=== PATIENT | female | born 1955 | race Caucasian/White ===

== ENCOUNTER 2017-01-03 21:06 | Emergency (ER) | payer MEDICAID ==
[~2017-01-03] VITALS: Ht 157.5 cm; Wt 72.8 kg
[~2017-01-03 21:06] MED LIST: ALBU0.63 NEB; ALBU18HF INH; ASPI-650 PO; CARV6.252 PO; HYDR25TA6 PO; LISI-167 PO; METO50TA4 PO; METO50TA82 PO; NAPR220C2 PO; SIMV20TA3 PO
[2017-01-03 21:07] VITALS: BP 202/92
== END 2017-01-03 21:58 ==
LOC: ED 21:52
DX: N64.4 Mastodynia (principal); Z53.21 Procedure and treatment not carried out due to patient leaving prior to being seen by health care provider

== ENCOUNTER 2017-03-10 21:37 | Emergency (ER) | payer MEDICAID ==
[~2017-03-10] VITALS: Ht 157.5 cm; Wt 72.2 kg
[2017-03-10 22:54] VITALS: BP 157/80
== END 2017-03-10 23:46 | disposition home or self-care (01) ==
LOC: ED 22:17
DX: J98.01 Acute bronchospasm (principal); I10 Essential (primary) hypertension; H92.03 Otalgia, bilateral; J44.9 Chronic obstructive pulmonary disease, unspecified; I25.10 Atherosclerotic heart disease of native coronary artery without angina pectoris; I25.2 Old myocardial infarction; Z87.891 Personal history of nicotine dependence; Z95.818 Presence of other cardiac implants and grafts
CPT/HCPCS: 71020; 93005; 99284

== ENCOUNTER 2017-08-05 18:37 | Inpatient (IN) | payer MEDICAID ==
[~2017-08-05] VITALS: Ht 157.5 cm; Wt 73.8 kg
[2017-08-05] MEDS ORDERED: SODIUM CHLORIDE FLUSH 10ML SYR IVF ONE (19:00)
[2017-08-05] MEDS ORDERED: ASPIRIN 81 MG TABLET CHEW PO ONE (19:00)
[2017-08-05] MEDS ORDERED: ASPIRIN 81 MG TABLET CHEW ONE (19:05)
[2017-08-05] MEDS ORDERED: METO50TA82 PO (19:21)
[2017-08-05 19:40] LABS: HEMATOCRIT 44.1 % (34.6-47.8); HEMOGLOBIN 15.1 g/dL (11.7-16.4); WHITE BLOOD COUNT 8.3 x10^3/uL (3.4-10)
[2017-08-05] MEDS ORDERED: IBUPROFEN 200 MG TABLET ONE (19:42)
[2017-08-05] MEDS ORDERED: ACETAMINOPHEN 500 MG TABLET ONE (19:43)
[2017-08-05 19:45] LABS: BLOOD UREA NITROGEN 20 mg/dL (7-18)
[2017-08-05 19:50] LABS: IS PT STATUS REG ER OR PRE ER? YES
[2017-08-05] MEDS ORDERED: NITROGLYCERIN OINT 2%, 1GM TP ONE ×2 (20:00→20:33)
[2017-08-05] MEDS ORDERED: ENALAPRILAT 1.25 MG/ML, 2ML IV ONE (21:00)
[2017-08-05] MEDS ORDERED: ENALAPRILAT 1.25 MG/ML, 2ML ONE (21:06)
[2017-08-05] MEDS ORDERED: LORazepam 1MG TABLET ONE (21:09)
[2017-08-05] MEDS ORDERED: SODIUM CHLORIDE 0.9% 1,000 ML IV SCH (21:25)
[2017-08-05] MEDS ORDERED: ACETAMINOPHEN 325 MG TABLET PO PRN (21:30)
[2017-08-05] MEDS ORDERED: LABETALOL 5MG/ML, 20ML IVPush PRN (21:30)
[2017-08-05] MEDS ORDERED: morphine SULFATE 10 MG/ML, 1ML IVPush PRN (21:30)
[2017-08-05] MEDS ORDERED: hydrALAzine 20 MG/ML, 1ML IVPush PRN (21:30)
[2017-08-05] MEDS ORDERED: LORazepam 1MG TABLET PO PRN (21:30)
[2017-08-05] MEDS ORDERED: LORazepam 1MG TABLET PO ONE (21:30)
[2017-08-05 22:53] VITALS: BP 144/86
[2017-08-05 22:54] VITALS: BP 144/86
[2017-08-05 23:51] LABS: IS PT STATUS REG ER OR PRE ER? NO
[2017-08-06 03:27] VITALS: BP 102/62
[2017-08-06 05:12] VITALS: BP 127/81
[2017-08-06] MEDS ORDERED: ASPIRIN 325 MG TABLET EC PO SCH (06:00)
[2017-08-06 06:38] LABS: IS PT STATUS REG ER OR PRE ER? NO
== END 2017-08-06 07:15 | disposition left against medical advice (07) | DRG 305 ==
LOC: ED 20:54 → EDIP 20:55 → SUATTDRO 21:24 → ED 21:58 → 5SO 23:00
PROVIDERS: ADMIT Hospitalist; ATTEND Hospitalist
DX: I16.0 Hypertensive urgency (principal); I25.10 Atherosclerotic heart disease of native coronary artery without angina pectoris; I10 Essential (primary) hypertension; I49.3 Ventricular premature depolarization; J44.9 Chronic obstructive pulmonary disease, unspecified; Z53.21 Procedure and treatment not carried out due to patient leaving prior to being seen by health care provider; Z79.82 Long term (current) use of aspirin; Z82.49 Family history of ischemic heart disease and other diseases of the circulatory system; Z83.3 Family history of diabetes mellitus; Z87.891 Personal history of nicotine dependence
CPT/HCPCS: 36415; 71020; 80048; 80061; 82040; 84484; 85025; 93005; J7030

== ENCOUNTER 2017-08-12 16:06 | Emergency (ER) | payer MEDICAID ==
[~2017-08-12] VITALS: Ht 152.4 cm; Wt 73.1 kg
[2017-08-12] MEDS ORDERED: ASPIRIN 81 MG TABLET CHEW PO ONE (17:00)
[2017-08-12] MEDS ORDERED: DIPH,PERTUSS(ACELL),TET VAC/PF 0.5 ML IM-VACC ONE ×2 (17:00→17:20)
[2017-08-12 17:17] LABS: HEMATOCRIT 43.5 % (34.6-47.8); HEMOGLOBIN 15.1 g/dL (11.7-16.4); WHITE BLOOD COUNT 7.7 x10^3/uL (3.4-10)
[2017-08-12] MEDS ORDERED: ASPIRIN 81 MG TABLET CHEW ONE (17:22)
[2017-08-12 17:29] LABS: BLOOD UREA NITROGEN 31 mg/dL (7-18)
[2017-08-12 17:33] LABS: IS PT STATUS REG ER OR PRE ER? YES
[2017-08-12] MEDS ORDERED: HYDROcodone/APAP 5/325 TABLET PO ONE (18:00)
[2017-08-12] MEDS ORDERED: HYDROcodone/APAP 5/325 TABLET ONE (18:19)
[2017-08-12 19:19] VITALS: BP 203/109
[2017-08-12] MEDS ORDERED: METOPROLOL TARTRATE 50 MG TABLET ONE (19:42)
[2017-08-12] MEDS ORDERED: METOPROLOL TARTRATE 50 MG TABLET PO ONE (20:00)
== END 2017-08-12 20:50 | disposition home or self-care (01) ==
LOC: ED 17:34
DX: I10 Essential (primary) hypertension (principal); J44.9 Chronic obstructive pulmonary disease, unspecified; I25.10 Atherosclerotic heart disease of native coronary artery without angina pectoris
CPT/HCPCS: 36415; 80048; 82040; 83880; 84484; 85025; 90471; 90715; 93005

== ENCOUNTER 2017-09-09 02:36 | Emergency (ER) | payer MEDICAID ==
[~2017-09-09] VITALS: Ht 157.5 cm; Wt 85.0 kg
[2017-09-09] MEDS ORDERED: ACETAMINOPHEN 325 MG TABLET PO ONE (03:00)
[2017-09-09] MEDS ORDERED: ACETAMINOPHEN 500 MG TABLET ONE (03:01)
[2017-09-09 03:16] VITALS: BP 154/88
== END 2017-09-09 03:18 | disposition home or self-care (01) ==
LOC: ED 02:40
DX: S46.812A Strain of other muscles, fascia and tendons at shoulder and upper arm level, left arm, initial encounter (principal); J44.9 Chronic obstructive pulmonary disease, unspecified; I10 Essential (primary) hypertension; E87.6 Hypokalemia; I25.2 Old myocardial infarction; X58.XXXA Exposure to other specified factors, initial encounter; Y93.89 Activity, other specified; Y92.89 Other specified places as the place of occurrence of the external cause; Y99.8 Other external cause status
CPT/HCPCS: 93005; 99283

== ENCOUNTER 2017-09-20 19:14 | Emergency (ER) | payer MEDICAID ==
[~2017-09-20] VITALS: Ht 162.6 cm; Wt 73.0 kg
[2017-09-20 19:29] VITALS: BP 138/86
== END 2017-09-20 19:33 | disposition left against medical advice (07) ==
LOC: ED 19:27
DX: R07.9 Chest pain, unspecified (principal); Z53.21 Procedure and treatment not carried out due to patient leaving prior to being seen by health care provider

== ENCOUNTER 2017-09-24 23:31 | Emergency (ER) | payer MEDICAID ==
[~2017-09-24] VITALS: Ht 160 cm; Wt 73.0 kg
[2017-09-24 23:35] VITALS: BP 166/87
[2017-09-24] MEDS ORDERED: NAPR220C2 PO (23:40)
[2017-09-24] MEDS ORDERED: OMEG-76 PO (23:41)
[2017-09-24] MEDS ORDERED: ASPI-650 PO (23:41)
[2017-09-24] MEDS ORDERED: MULT-516 PO (23:42)
[2017-09-24] MEDS ORDERED: DIPHENHYDRAMINE 50 MG/ML, 1ML ONE (23:55)
[2017-09-25] MEDS ORDERED: DIPHENHYDRAMINE 50 MG/ML, 1ML IM ONE
== END 2017-09-25 00:35 | disposition home or self-care (01) ==
LOC: ED 23:59
DX: L29.9 Pruritus, unspecified (principal); I10 Essential (primary) hypertension; J44.9 Chronic obstructive pulmonary disease, unspecified; I25.10 Atherosclerotic heart disease of native coronary artery without angina pectoris; E87.6 Hypokalemia
CPT/HCPCS: 96372; 99283; J1200

== ENCOUNTER 2017-09-27 09:23 | Emergency (ER) | payer MEDICAID ==
[~2017-09-27] VITALS: Ht 160 cm; Wt 68.2 kg
[~2017-09-27 09:23] MED LIST changes: +MULT-516 PO; +OMEG-76 PO
[2017-09-27 09:26] VITALS: BP 159/87
== END 2017-09-27 10:12 | disposition left against medical advice (07) ==
LOC: ED 10:00
DX: J11.1 Influenza due to unidentified influenza virus with other respiratory manifestations (principal); Z53.21 Procedure and treatment not carried out due to patient leaving prior to being seen by health care provider

== ENCOUNTER 2017-10-07 04:34 | Emergency (ER) | payer MEDICAID ==
[~2017-10-07] VITALS: Ht 160 cm; Wt 70.7 kg
[2017-10-07 04:36] VITALS: BP 172/132
== END 2017-10-07 05:20 | disposition left against medical advice (07) ==
LOC: ED 05:09
DX: Z53.21 Procedure and treatment not carried out due to patient leaving prior to being seen by health care provider (principal)

== ENCOUNTER 2017-10-07 06:25 | Emergency (ER) | payer MEDICAID ==
[~2017-10-07] VITALS: Ht 160 cm; Wt 70.9 kg
[2017-10-07 06:27] VITALS: BP 166/95
[2017-10-07 07:02] LABS: HEMATOCRIT 41.2 % (34.6-47.8); HEMOGLOBIN 13.9 g/dL (11.7-16.4); WHITE BLOOD COUNT 10.8 x10^3/uL (3.4-10)
[2017-10-07 07:12] LABS: BLOOD UREA NITROGEN 23 mg/dL (7-18)
== END 2017-10-07 08:18 | disposition home or self-care (01) ==
LOC: ED 07:00
DX: S93.492A Sprain of other ligament of left ankle, initial encounter (principal); I10 Essential (primary) hypertension; J44.9 Chronic obstructive pulmonary disease, unspecified; F17.210 Nicotine dependence, cigarettes, uncomplicated; I25.10 Atherosclerotic heart disease of native coronary artery without angina pectoris; I25.2 Old myocardial infarction; X58.XXXA Exposure to other specified factors, initial encounter; Y93.89 Activity, other specified; Y92.89 Other specified places as the place of occurrence of the external cause; Y99.8 Other external cause status
CPT/HCPCS: 36415; 80048; 82040; 85025; 99285

== ENCOUNTER 2017-10-12 22:02 | Emergency (ER) | payer MEDICAID ==
[~2017-10-12] VITALS: Ht 160 cm; Wt 72.2 kg
[2017-10-12] MEDS ORDERED: FAMOTIDINE 20 MG TABLET ONE (23:40)
[2017-10-12] MEDS ORDERED: DIPHENHYDRAMINE 50 MG CAPSULE ONE (23:40)
[2017-10-13] MEDS ORDERED: DIPHENHYDRAMINE 25 MG CAPSULE PO ONE
[2017-10-13] MEDS ORDERED: FAMOTIDINE 20 MG/2 ML IVPush ONE
[2017-10-13 00:06] VITALS: BP 149/86
== END 2017-10-13 00:08 | disposition home or self-care (01) ==
LOC: ED 23:58
DX: L50.0 Allergic urticaria (principal); I10 Essential (primary) hypertension; J44.9 Chronic obstructive pulmonary disease, unspecified; I25.110 Atherosclerotic heart disease of native coronary artery with unstable angina pectoris
CPT/HCPCS: 99284; J7512; Q0163; Q0177

== ENCOUNTER 2017-10-17 16:21 | Emergency (ER) | payer MEDICAID | END 2017-10-17 21:27 | disposition left against medical advice (07) | LOC: ED 21:13 | DX: Z53.21 Procedure and treatment not carried out due to patient leaving prior to being seen by health care provider (principal) ==

== ENCOUNTER 2018-05-08 15:59 | Emergency (ER) | payer MEDICAID ==
[~2018-05-08] VITALS: Ht 160 cm; Wt 73.0 kg
[2018-05-08 18:14] LABS: BASOPHILS # (AUTO) 0.03 x10^3/uL (0-0.1); BASOPHILS % (AUTO) 0 % (0-1); EOSINOPHILS # (AUTO) 0.11 x10^3/uL (0-0.4); EOSINOPHILS % (AUTO) 1 % (1-7); LYMPHOCYTES # (AUTO) 2.16 x10^3/uL (1-3.4); LYMPHOCYTES % (AUTO) 25 % (22-44); MD NO; MEAN CORPUSCULAR HEMOGLOBIN 30.2 pg (27.0-34.8); MEAN CORPUSCULAR HGB CONC 34.1 g/dL (32.4-35.8); MEAN CORPUSCULAR VOLUME 88.7 fL (80-100); MEAN PLATELET VOLUME 8.9 fL (7.4-10.4); MONOCYTES # (AUTO) 0.69 x10^3/uL (0.2-0.8); MONOCYTES % (AUTO) 8 % (2-9); NEUTROPHILS # (AUTO) 5.76 x10^3/uL (1.8-6.8); NEUTROPHILS % (AUTO) 66 % (42-75); PLATELET COUNT 236 x10^3/uL (130-400); RED BLOOD COUNT 4.88 x10^6/uL (3.82-5.3); RED CELL DISTRIBUTION WIDTH 13.8 % (9.6-15.2)
[2018-05-08 18:24] LABS: ALBUMIN 4.1 g/dL (3.4-5.0); ANION GAP 8 mmol/L (5-15); CALCIUM 9.4 mg/dL (8.5-10.1); CHLORIDE 106 mmol/L (98-107); CREATININE 1.02 mg/dL (0.55-1.02)
[2018-05-08 18:28] LABS: TROPONIN I < 0.015 ng/mL (0.000-0.045)
[2018-05-08 18:52] VITALS: BP 158/79
== END 2018-05-08 18:55 | disposition home or self-care (01) ==
LOC: ED 18:49
DX: L30.9 Dermatitis, unspecified (principal)
CPT/HCPCS: 36415; 71045; 80048; 82040; 83880; 84484; 85025; 93005; 99285

== ENCOUNTER 2018-05-30 23:24 | Emergency (ER) | payer SELFPAY ==
[~2018-05-30] VITALS: Ht 160 cm; Wt 73.0 kg
[2018-05-31] MEDS ORDERED: LORazepam 1MG TABLET ONE (00:21)
[2018-05-31] MEDS ORDERED: LORazepam 1MG TABLET PO ONE (00:30)
[2018-05-31 00:33] LABS: BASOPHILS # (AUTO) 0.04 x10^3/uL (0-0.1); BASOPHILS % (AUTO) 1 % (0-1); EOSINOPHILS # (AUTO) 0.13 x10^3/uL (0-0.4); EOSINOPHILS % (AUTO) 2 % (1-7); LYMPHOCYTES # (AUTO) 1.68 x10^3/uL (1-3.4); LYMPHOCYTES % (AUTO) 20 % (22-44); MD NO; MEAN CORPUSCULAR HEMOGLOBIN 30.2 pg (27.0-34.8); MEAN CORPUSCULAR HGB CONC 34.2 g/dL (32.4-35.8); MEAN CORPUSCULAR VOLUME 88.2 fL (80-100); MEAN PLATELET VOLUME 8.6 fL (7.4-10.4); MONOCYTES # (AUTO) 0.52 x10^3/uL (0.2-0.8); MONOCYTES % (AUTO) 6 % (2-9); NEUTROPHILS % (AUTO) 72 % (42-75); PLATELET COUNT 245 x10^3/uL (130-400); RED BLOOD COUNT 4.79 x10^6/uL (3.82-5.3); RED CELL DISTRIBUTION WIDTH 13.7 % (9.6-15.2)
[2018-05-31 00:43] LABS: ALANINE AMINOTRANSFERASE 32 U/L (12-78); ALBUMIN 3.7 g/dL (3.4-5.0); ANION GAP 8 mmol/L (5-15); CALCIUM 9.2 mg/dL (8.5-10.1); CHLORIDE 109 mmol/L (98-107); CREATININE 0.99 mg/dL (0.55-1.02)
[2018-05-31 00:47] LABS: ALKALINE PHOSPHATASE 78 U/L (45-117); BILIRUBIN,TOTAL 0.5 mg/dL (0.2-1.0); TOTAL PROTEIN 7.5 g/dL (6.4-8.2); TROPONIN I < 0.015 ng/mL (0.000-0.045)
[2018-05-31 02:04] VITALS: BP 152/73
== END 2018-05-31 02:18 | disposition home or self-care (01) ==
LOC: ED 23:59
DX: R00.2 Palpitations (principal); F41.1 Generalized anxiety disorder; I25.2 Old myocardial infarction; J44.9 Chronic obstructive pulmonary disease, unspecified; I25.10 Atherosclerotic heart disease of native coronary artery without angina pectoris; I10 Essential (primary) hypertension; Z79.899 Other long term (current) drug therapy
CPT/HCPCS: 36415; 71046; 80053; 80307; 84484; 85025; 93005; 99285

== ENCOUNTER 2018-06-06 00:05 | Emergency (ER) | payer SELFPAY ==
[~2018-06-06] VITALS: Ht 154.9 cm; Wt 66.5 kg
[2018-06-06] MEDS ORDERED: ACETAMINOPHEN 325 MG TABLET ONE (00:51)
[2018-06-06] MEDS ORDERED: ACETAMINOPHEN 325 MG TABLET PO ONE (01:00)
[2018-06-06 01:23] VITALS: BP 250/88
== END 2018-06-06 05:00 | disposition home or self-care (01) ==
LOC: ED 00:16
DX: I10 Essential (primary) hypertension (principal); I25.2 Old myocardial infarction; J44.9 Chronic obstructive pulmonary disease, unspecified; I25.10 Atherosclerotic heart disease of native coronary artery without angina pectoris
CPT/HCPCS: 99283

== ENCOUNTER 2018-07-04 03:29 | Emergency (ER) | payer SELFPAY ==
[~2018-07-04] VITALS: Ht 167.6 cm; Wt 75.0 kg
[2018-07-04 03:29] VITALS: BP 167/97
[2018-07-04] MEDS ORDERED: FAMOTIDINE 20 MG TABLET PO ONE (04:00)
[2018-07-04] MEDS ORDERED: FAMOTIDINE 20 MG TABLET ONE (04:16)
== END 2018-07-04 04:28 | disposition home or self-care (01) ==
LOC: ED 04:20
DX: T78.1XXA Other adverse food reactions, not elsewhere classified, initial encounter (principal); F23 Brief psychotic disorder; F22 Delusional disorders; I25.2 Old myocardial infarction; J44.9 Chronic obstructive pulmonary disease, unspecified; I25.10 Atherosclerotic heart disease of native coronary artery without angina pectoris; I10 Essential (primary) hypertension; Z87.891 Personal history of nicotine dependence; X58.XXXA Exposure to other specified factors, initial encounter
CPT/HCPCS: 99283; Q0177

== ENCOUNTER 2018-07-15 23:06 | Emergency (ER) | payer OTHER ==
[~2018-07-15] VITALS: Ht 157.5 cm; Wt 68.2 kg
[2018-07-15] MEDS ORDERED: KETOROLAC 30 MG/1 ML ONE (23:36)
[2018-07-16] MEDS ORDERED: KETOROLAC 30 MG/1 ML IM ONE
[2018-07-16 00:01] LABS: BASOPHILS # (AUTO) 0.03 x10^3/uL (0-0.1); BASOPHILS % (AUTO) 0 % (0-1); EOSINOPHILS # (AUTO) 0.25 x10^3/uL (0-0.4); EOSINOPHILS % (AUTO) 3 % (1-7); LYMPHOCYTES # (AUTO) 1.81 x10^3/uL (1-3.4); LYMPHOCYTES % (AUTO) 23 % (22-44); MD NO; MEAN CORPUSCULAR HEMOGLOBIN 31.1 pg (27.0-34.8); MEAN CORPUSCULAR HGB CONC 34.5 g/dL (32.4-35.8); MEAN CORPUSCULAR VOLUME 90.2 fL (80-100); MEAN PLATELET VOLUME 8.7 fL (7.4-10.4); MONOCYTES # (AUTO) 0.54 x10^3/uL (0.2-0.8); MONOCYTES % (AUTO) 7 % (2-9); NEUTROPHILS # (AUTO) 5.17 x10^3/uL (1.8-6.8); NEUTROPHILS % (AUTO) 66 % (42-75); PLATELET COUNT 226 x10^3/uL (130-400); RED BLOOD COUNT 4.38 x10^6/uL (3.82-5.3); RED CELL DISTRIBUTION WIDTH 14.5 % (9.6-15.2)
[2018-07-16 00:12] LABS: ALBUMIN 3.4 g/dL (3.4-5.0); ANION GAP 9 mmol/L (5-15); CALCIUM 8.6 mg/dL (8.5-10.1); CHLORIDE 108 mmol/L (98-107); CREATININE 0.76 mg/dL (0.55-1.02)
[2018-07-16 00:16] LABS: TROPONIN I < 0.015 ng/mL (0.000-0.045)
[2018-07-16 01:30] VITALS: BP 155/71
== END 2018-07-16 02:07 | disposition home or self-care (01) ==
LOC: ED 23:49
DX: J20.9 Acute bronchitis, unspecified (principal); R07.2 Precordial pain; I25.2 Old myocardial infarction; I10 Essential (primary) hypertension; Z95.0 Presence of cardiac pacemaker
CPT/HCPCS: 36415; 71045; 80048; 82040; 84484; 85025; 93005; 96372; 99285; J1885

== ENCOUNTER 2018-07-21 00:49 | Emergency (ER) | payer SELFPAY ==
[~2018-07-21] VITALS: Ht 157.5 cm; Wt 70.4 kg
[2018-07-21 00:52] VITALS: BP 150/81
[2018-07-21] MEDS ORDERED: ALBUTEROL/IPRATROPIUM 2.5MG/0.5MG, 3 ML ONE (01:24)
[2018-07-21] MEDS ORDERED: ALBUTEROL/IPRATROPIUM 2.5MG/0.5MG, 3 ML NPPB PRN (01:30)
[2018-07-21] MEDS ORDERED: ALBUTEROL/IPRATROPIUM 2.5MG/0.5MG, 3 ML NPPB ONE (01:30)
== END 2018-07-21 02:44 | disposition home or self-care (01) ==
LOC: ED 01:21
DX: J44.1 Chronic obstructive pulmonary disease with (acute) exacerbation (principal); I25.2 Old myocardial infarction; F41.1 Generalized anxiety disorder; I10 Essential (primary) hypertension; Z72.9 Problem related to lifestyle, unspecified; F17.200 Nicotine dependence, unspecified, uncomplicated
CPT/HCPCS: 71046; 94640; 99284; J7512; J7620

== ENCOUNTER 2018-07-30 00:16 | Emergency (ER) | payer SELFPAY ==
[~2018-07-30] VITALS: Ht 157.5 cm; Wt 70.5 kg
[2018-07-30 00:19] VITALS: BP 164/92
[2018-07-30 00:58] LABS: ANION GAP 8 mmol/L (5-15); CALCIUM 8.7 mg/dL (8.5-10.1); CHLORIDE 110 mmol/L (98-107); CREATININE 0.86 mg/dL (0.55-1.02)
[2018-07-30 01:02] LABS: TROPONIN I < 0.015 ng/mL (0.000-0.045)
== END 2018-07-30 01:57 | disposition home or self-care (01) ==
LOC: ED 00:30
DX: R04.0 Epistaxis (principal); I10 Essential (primary) hypertension; F41.1 Generalized anxiety disorder; I25.2 Old myocardial infarction; J44.9 Chronic obstructive pulmonary disease, unspecified; I25.10 Atherosclerotic heart disease of native coronary artery without angina pectoris; Z98.61 Coronary angioplasty status
CPT/HCPCS: 36415; 80048; 84484; 93005; 99285

== ENCOUNTER 2018-08-05 02:02 | Emergency (ER) | payer OTHER ==
[~2018-08-05] VITALS: Ht 154.9 cm; Wt 70.8 kg
[2018-08-05 02:09] VITALS: BP 161/99
== END 2018-08-05 02:47 | disposition home or self-care (01) ==
LOC: ED 02:19
DX: R06.00 Dyspnea, unspecified (principal); J44.9 Chronic obstructive pulmonary disease, unspecified; I25.2 Old myocardial infarction; E11.65 Type 2 diabetes mellitus with hyperglycemia; I25.10 Atherosclerotic heart disease of native coronary artery without angina pectoris; I10 Essential (primary) hypertension
CPT/HCPCS: 93005; 99283

== ENCOUNTER 2018-08-17 07:36 | Emergency (ER) | payer SELFPAY ==
[~2018-08-17] VITALS: Ht 157.5 cm; Wt 70.6 kg
[2018-08-17 07:41] VITALS: BP 188/127
[2018-08-17] MEDS ORDERED: ALEVE (08:34)
== END 2018-08-17 08:51 | disposition home or self-care (01) ==
LOC: ED 08:30
DX: T36.4X5A Adverse effect of tetracyclines, initial encounter (principal); L55.0 Sunburn of first degree; I25.2 Old myocardial infarction; J44.9 Chronic obstructive pulmonary disease, unspecified; F29 Unspecified psychosis not due to a substance or known physiological condition; F41.9 Anxiety disorder, unspecified; E11.9 Type 2 diabetes mellitus without complications; Z86.79 Personal history of other diseases of the circulatory system; Y92.89 Other specified places as the place of occurrence of the external cause; Z98.61 Coronary angioplasty status
CPT/HCPCS: 99283

== ENCOUNTER 2018-08-20 23:32 | Emergency (ER) | payer SELFPAY ==
[~2018-08-20] VITALS: Ht 157.5 cm; Wt 68.2 kg
[~2018-08-20 23:32] MED LIST changes: +ALEVE
[2018-08-20 23:37] VITALS: BP 103/77
== END 2018-08-21 00:33 | disposition home or self-care (01) ==
LOC: ED 23:59
DX: R06.00 Dyspnea, unspecified (principal); I10 Essential (primary) hypertension; I25.10 Atherosclerotic heart disease of native coronary artery without angina pectoris; I25.2 Old myocardial infarction; J44.9 Chronic obstructive pulmonary disease, unspecified; E11.65 Type 2 diabetes mellitus with hyperglycemia
CPT/HCPCS: 99281

== ENCOUNTER 2018-08-25 17:38 | Emergency (ER) | payer MEDICAID ==
[~2018-08-25] VITALS: Ht 157.5 cm; Wt 70.9 kg
[2018-08-25] MEDS ORDERED: ONDANSETRON ODT 4 MG ONE (18:21)
[2018-08-25] MEDS ORDERED: ONDANSETRON ODT 4 MG PO ONE (18:30)
[2018-08-25 18:33] LABS: BASOPHILS # (AUTO) 0.06 x10^3/uL (0-0.1); BASOPHILS % (AUTO) 1 % (0-1); EOSINOPHILS # (AUTO) 0.19 x10^3/uL (0-0.4); EOSINOPHILS % (AUTO) 3 % (1-7); LYMPHOCYTES # (AUTO) 1.75 x10^3/uL (1-3.4); LYMPHOCYTES % (AUTO) 29 % (22-44); MD NO; MEAN CORPUSCULAR HEMOGLOBIN 30.7 pg (27.0-34.8); MEAN CORPUSCULAR HGB CONC 33.8 g/dL (32.4-35.8); MEAN CORPUSCULAR VOLUME 90.9 fL (80-100); MEAN PLATELET VOLUME 8.7 fL (7.4-10.4); MONOCYTES % (AUTO) 8 % (2-9); NEUTROPHILS # (AUTO) 3.55 x10^3/uL (1.8-6.8); NEUTROPHILS % (AUTO) 59 % (42-75); PLATELET COUNT 216 x10^3/uL (130-400); RED BLOOD COUNT 4.16 x10^6/uL (3.82-5.3)
[2018-08-25 18:43] LABS: ALBUMIN 3.2 g/dL (3.4-5.0); ANION GAP 10 mmol/L (5-15); CALCIUM 8.7 mg/dL (8.5-10.1); CHLORIDE 107 mmol/L (98-107)
[2018-08-25 18:48] LABS: CREATININE 1.19 mg/dL (0.55-1.02); TROPONIN I < 0.015 ng/mL (0.000-0.045)
[2018-08-25 19:48] VITALS: BP 145/82
== END 2018-08-25 19:50 | disposition home or self-care (01) ==
LOC: ED 18:10
DX: G89.11 Acute pain due to trauma (principal); J00 Acute nasopharyngitis [common cold]; M54.5 Low back pain; J44.9 Chronic obstructive pulmonary disease, unspecified; E11.9 Type 2 diabetes mellitus without complications; I25.2 Old myocardial infarction; I25.10 Atherosclerotic heart disease of native coronary artery without angina pectoris; I10 Essential (primary) hypertension; Z87.891 Personal history of nicotine dependence; W01.0XXA Fall on same level from slipping, tripping and stumbling without subsequent striking against object, initial encounter; Y93.89 Activity, other specified; Y92.89 Other specified places as the place of occurrence of the external cause; Y99.8 Other external cause status
CPT/HCPCS: 36415; 71045; 80048; 82040; 84484; 85025; 93005; 99285; Q0162

== ENCOUNTER 2018-08-29 21:08 | Inpatient (IN) | payer MEDICAID ==
[~2018-08-29] VITALS: Ht 160 cm; Wt 68.0 kg
[2018-08-29] MEDS ORDERED: KETOROLAC 30 MG/1 ML ONE (21:57)
[2018-08-29] MEDS ORDERED: METOCLOPRAMIDE 5 MG/ML, 2ML ONE (21:57)
[2018-08-29] MEDS ORDERED: DIPHENHYDRAMINE 50 MG/ML, 1ML ONE (21:57)
[2018-08-29] MEDS ORDERED: KETOROLAC 30 MG/1 ML IVPush ONE (22:00)
[2018-08-29] MEDS ORDERED: DIPHENHYDRAMINE 50 MG/ML, 1ML IVPush ONE (22:00)
[2018-08-29] MEDS ORDERED: PROCHLORPERAZINE 5 MG/ML, 2ML IVPush ONE (22:00)
[2018-08-30] MEDS ORDERED: ONDANSETRON 2MG/ML, 2ML IVPush PRN ×2 (01:30→04:00)
[2018-08-30 01:42] LABS: ALBUMIN 3.3 g/dL (3.4-5.0); ANION GAP 9 mmol/L (5-15); CALCIUM 8.5 mg/dL (8.5-10.1); CHLORIDE 104 mmol/L (98-107); CREATININE 1.04 mg/dL (0.55-1.02)
[2018-08-30 01:46] LABS: BASOPHILS # (AUTO) 0.04 x10^3/uL (0-0.1); BASOPHILS % (AUTO) 1 % (0-1); EOSINOPHILS # (AUTO) 0.11 x10^3/uL (0-0.4); EOSINOPHILS % (AUTO) 1 % (1-7); LYMPHOCYTES # (AUTO) 1.68 x10^3/uL (1-3.4); LYMPHOCYTES % (AUTO) 18 % (22-44); MD NO; MEAN CORPUSCULAR HEMOGLOBIN 31.3 pg (27.0-34.8); MEAN CORPUSCULAR HGB CONC 34.7 g/dL (32.4-35.8); MEAN CORPUSCULAR VOLUME 90.2 fL (80-100); MEAN PLATELET VOLUME 9.2 fL (7.4-10.4); MONOCYTES # (AUTO) 0.74 x10^3/uL (0.2-0.8); MONOCYTES % (AUTO) 8 % (2-9); NEUTROPHILS # (AUTO) 7.01 x10^3/uL (1.8-6.8); NEUTROPHILS % (AUTO) 73 % (42-75); PLATELET COUNT 209 x10^3/uL (130-400); RED BLOOD COUNT 4.22 x10^6/uL (3.82-5.3); RED CELL DISTRIBUTION WIDTH 13.3 % (9.6-15.2)
[2018-08-30 02:13] VITALS: BP 118/77
[2018-08-30] MEDS ORDERED: ONDANSETRON ODT 4 MG PO PRN (04:00)
[2018-08-30] MEDS ORDERED: LABETALOL 5MG/ML, 20ML IVPush PRN (04:00)
[2018-08-30] MEDS ORDERED: PROMETHAZINE 25 MG/ML, 1ML IM PRN (04:00)
[2018-08-30] MEDS ORDERED: DOCUSATE 100 MG CAPSULE PO PRN (04:00)
[2018-08-30] MEDS ORDERED: hydrALAzine 20 MG/ML, 1ML IVPush PRN (04:00)
[2018-08-30] MEDS ORDERED: POLYETHYLENE GLYCOL 17 GM PACKET PO PRN (04:00)
[2018-08-30] MEDS ORDERED: KETOROLAC 30 MG/1 ML IV PRN (04:00)
[2018-08-30] MEDS ORDERED: ACETAMINOPHEN 325 MG TABLET PO PRN (04:00)
[2018-08-30] MEDS: HEPARIN 5,000 UNITS/ML, 1ML SQ SCH ×2 (04:00→10:15)
[2018-08-30] MEDS ORDERED: BISACODYL 10 MG SUPP PR PRN (04:00)
[2018-08-30 04:23] LABS: HEMOGLOBIN A1C 6.6 % (4.2-6.3)
[2018-08-30 04:24] LABS: FREE T4 (FREE THYROXINE) 1.17 ng/dL (0.76-1.46); THYROID STIMULATING HORMONE 2.74 mIU/L (0.358-3.740)
[2018-08-30] MEDS ORDERED: ASPIRIN 325 MG TABLET EC PO SCH (06:00)
[2018-08-30 07:55] VITALS: BP 134/71
[2018-08-30 10:02] VITALS: BP 134/83
[2018-08-30] MEDS ORDERED: ASPI-650 PO (12:18)
[2018-08-30] MEDS ORDERED: ATOR20TA PO (12:18)
[2018-08-30] MEDS ORDERED: ACET-1600 PO (13:12)
== END 2018-08-30 15:29 | disposition home or self-care (01) | DRG 103 ==
LOC: ED 21:36 → EDIP 08-30 01:19 → 4EST 08-30 01:58
PROVIDERS: ADMIT Internal Medicine; ATTEND Internal Medicine
DX: R51 Headache (principal); E44.0 Moderate protein-calorie malnutrition; E11.9 Type 2 diabetes mellitus without complications; J44.9 Chronic obstructive pulmonary disease, unspecified; I25.10 Atherosclerotic heart disease of native coronary artery without angina pectoris; I10 Essential (primary) hypertension; Z86.73 Personal history of transient ischemic attack (TIA), and cerebral infarction without residual deficits; Z87.891 Personal history of nicotine dependence; I25.2 Old myocardial infarction; Z68.26 Body mass index [BMI] 26.0-26.9, adult
CPT/HCPCS: 36415; 70450; 70551; 80048; 82040; 83036; 83735; 84439; 84443; 85025; 96374; 96375; 99285; G0378; J1885; J0780; J1200

== ENCOUNTER 2019-05-29 22:32 | Emergency (ER) | payer MEDICAID ==
[~2019-05-29] VITALS: Ht 160 cm; Wt 72.2 kg
[2019-05-29 23:56] VITALS: BP 183/85
== END 2019-05-30 01:30 | disposition home or self-care (01) ==
LOC: ED 23:55
DX: L20.84 Intrinsic (allergic) eczema (principal); M79.661 Pain in right lower leg; I10 Essential (primary) hypertension; J44.9 Chronic obstructive pulmonary disease, unspecified; I25.2 Old myocardial infarction; I25.10 Atherosclerotic heart disease of native coronary artery without angina pectoris; E11.65 Type 2 diabetes mellitus with hyperglycemia; Z87.891 Personal history of nicotine dependence
CPT/HCPCS: 93005; 99284

== ENCOUNTER 2019-05-31 06:28 | Emergency (ER) | payer MEDICAID ==
[~2019-05-31] VITALS: Ht 160 cm; Wt 71.3 kg
[2019-05-31 06:41] VITALS: BP 168/112
== END 2019-05-31 07:10 | disposition home or self-care (01) ==
LOC: ED 06:50
DX: L30.9 Dermatitis, unspecified (principal)
CPT/HCPCS: 99283

== ENCOUNTER 2019-06-03 18:59 | Emergency (ER) | payer MEDICAID ==
[~2019-06-03] VITALS: Ht 160 cm; Wt 70.2 kg
[2019-06-03 19:01] VITALS: BP 197/100
== END 2019-06-03 19:36 | disposition home or self-care (01) ==
LOC: ED 19:26
DX: L20.84 Intrinsic (allergic) eczema (principal); I10 Essential (primary) hypertension; E11.9 Type 2 diabetes mellitus without complications; J44.9 Chronic obstructive pulmonary disease, unspecified; I25.2 Old myocardial infarction; I25.10 Atherosclerotic heart disease of native coronary artery without angina pectoris
CPT/HCPCS: 99281

== ENCOUNTER 2019-06-04 14:33 | Emergency (ER) | payer MEDICAID ==
[~2019-06-04] VITALS: Ht 160 cm; Wt 70.2 kg
[2019-06-04 15:03] VITALS: BP 150/90
== END 2019-06-04 16:39 | disposition home or self-care (01) ==
LOC: ED 16:33
DX: S90.121A Contusion of right lesser toe(s) without damage to nail, initial encounter (principal); J44.9 Chronic obstructive pulmonary disease, unspecified; E11.9 Type 2 diabetes mellitus without complications; F41.1 Generalized anxiety disorder; I25.2 Old myocardial infarction; I25.10 Atherosclerotic heart disease of native coronary artery without angina pectoris; I10 Essential (primary) hypertension; W22.8XXA Striking against or struck by other objects, initial encounter; Y93.89 Activity, other specified; Y92.009 Unspecified place in unspecified non-institutional (private) residence as the place of occurrence of the external cause; Y99.8 Other external cause status
CPT/HCPCS: 90471; 90715; 99283

== ENCOUNTER 2019-08-12 03:20 | Emergency (ER) | payer MEDICARE ==
[~2019-08-12] VITALS: Ht 157.5 cm; Wt 65.7 kg
[~2019-08-12 03:20] MED LIST changes: +ACET-1600 PO; +ATOR20TA PO
[2019-08-12 03:22] VITALS: BP 175/99
--- NOTE | 2019-08-12 03:25 | NUR ---
REFUSED THE TEMP. " IT GAVE ME A BLISTER LAST TIME ".
[2019-08-12] MEDS ORDERED: DIPHENHYDRAMINE 25 MG CAPSULE ONE (03:55)
[2019-08-12] MEDS ORDERED: DIPHENHYDRAMINE 25 MG CAPSULE PO ONE (04:00)
== END 2019-08-12 04:13 | disposition home or self-care (01) ==
LOC: ED 04:00
DX: R04.0 Epistaxis (principal); E11.9 Type 2 diabetes mellitus without complications; F31.9 Bipolar disorder, unspecified; I25.10 Atherosclerotic heart disease of native coronary artery without angina pectoris; J44.9 Chronic obstructive pulmonary disease, unspecified; G43.909 Migraine, unspecified, not intractable, without status migrainosus; F41.1 Generalized anxiety disorder; Z72.9 Problem related to lifestyle, unspecified; Z87.891 Personal history of nicotine dependence
CPT/HCPCS: 99282; Q0163

== ENCOUNTER 2019-08-29 03:28 | Emergency (ER) | payer MEDICARE ==
[~2019-08-29] VITALS: Ht 154.9 cm; Wt 71.0 kg
[2019-08-29 03:32] VITALS: BP 138/77
== END 2019-08-29 05:03 ==
LOC: ED 04:09
DX: J44.1 Chronic obstructive pulmonary disease with (acute) exacerbation (principal); J20.8 Acute bronchitis due to other specified organisms; I10 Essential (primary) hypertension; I25.2 Old myocardial infarction; I25.10 Atherosclerotic heart disease of native coronary artery without angina pectoris; E11.9 Type 2 diabetes mellitus without complications; F41.1 Generalized anxiety disorder; F31.9 Bipolar disorder, unspecified; Z87.891 Personal history of nicotine dependence; Z72.9 Problem related to lifestyle, unspecified
CPT/HCPCS: 71046; 99283

== ENCOUNTER 2019-09-05 20:03 | Emergency (ER) | payer MEDICARE ==
[~2019-09-05] VITALS: Ht 157.5 cm; Wt 67.6 kg
[2019-09-05 20:09] VITALS: BP 179/86
--- NOTE | 2019-09-05 20:35 | NUR ---
PT HAS CO OF CHILLS, COUGH, AND WEAKNESS THAT STARTED THIS AM. PT STATES SHE THREW UP "DARK RED BLOOD CLOTS". PT STATES SHE FELT WEAK WALKING THIS AFTERNOON. PT RESTING ON GURNEY. WAITING FOR FURTHER ORDERS.
--- NOTE | 2019-09-05 20:50 | NUR ---
REPORT RECEIVED AND CARE ASSUMED. LAB AT BEDSIDE.
[2019-09-05 20:59] LABS: BASOPHILS # (AUTO) 0.01 x10^3/uL (0-0.1); BASOPHILS % (AUTO) 0 % (0-1); EOSINOPHILS % (AUTO) 1 % (1-7); LYMPHOCYTES # (AUTO) 1.28 x10^3/uL (1-3.4); LYMPHOCYTES % (AUTO) 9 % (22-44); MD NO; MEAN CORPUSCULAR HGB CONC 33.4 g/dL (32.4-35.8); MEAN CORPUSCULAR VOLUME 92.6 fL (80-100); MEAN PLATELET VOLUME 8.8 fL (7.4-10.4); MONOCYTES # (AUTO) 0.73 x10^3/uL (0.2-0.8); MONOCYTES % (AUTO) 5 % (2-9); NEUTROPHILS # (AUTO) 11.54 x10^3/uL (1.8-6.8); NEUTROPHILS % (AUTO) 85 % (42-75); PLATELET COUNT 215 x10^3/uL (130-400); RED BLOOD COUNT 4.42 x10^6/uL (3.82-5.3); RED CELL DISTRIBUTION WIDTH 14.6 % (9.6-15.2)
--- NOTE | 2019-09-05 21:09 | NUR ---
PATIENT IN ROOM PACING. ASKED IF PATIENT NEED ANYTHING, NO NOTED NEEDS AT THIS TIME.
[2019-09-05 21:11] LABS: ALBUMIN 3.4 g/dL (3.4-5.0); ANION GAP 6 mmol/L (5-15); CALCIUM 8.6 mg/dL (8.5-10.1); CHLORIDE 109 mmol/L (98-107)
[2019-09-05 21:12] LABS: CREATININE 0.82 mg/dL (0.55-1.02)
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
--- NOTE | 2019-09-05 22:16 | NUR ---
PATIENT REQUESTED PRESCRIPTION THAT STATED THE [facility] WHERE NOT TO BE SUBSTITUTED FOR GENERIC BRAND. THE PRESCRIPTION WAS CHANGED. WHILE ATTEMPTING TO DISCHARGE THE PATIENT, THE PATIENT BECAME IRRITATED STATED "I'LL JUST GO TO [facility] TO GET SOME REAL HEALTHCARE." AND "I'LL JUST HOP FROM HOSPITAL TO HOSPITAL ON THE [facility].". THE PATIENT WAS GIVEN CAB VOUCHER TO [facility], IN WHICH SHE REQUESTED THE VOUCHER TO BE ISSUED FOR. THE PATIENT REFUSED TO BE TRANSPORTED TO ANY OTHER RESIDENCY OR [facility]. SECURITY WAS CALLED ONCE THE PATIENT WAS RIPPING UP PAPERS, GOING THROUGH CABINETS, AND TEARING DOWN THE CURTAINS IN THE ROOM. SECURITY ESCORTED PATIENT TO WAITING ROOM.
== END 2019-09-05 22:21 | disposition home or self-care (01) ==
LOC: ED 20:44
DX: R05 Cough (principal); R06.02 Shortness of breath; R09.81 Nasal congestion; R53.1 Weakness; I10 Essential (primary) hypertension; F31.9 Bipolar disorder, unspecified; G43.909 Migraine, unspecified, not intractable, without status migrainosus
CPT/HCPCS: 36415; 71045; 80048; 82040; 85025; 93005; 99284

== ENCOUNTER 2019-09-10 19:48 | Emergency (ER) | payer MEDICARE ==
[~2019-09-10] VITALS: Ht 157.5 cm; Wt 66.0 kg
[2019-09-10 20:28] VITALS: BP 150/79
[2019-09-10] MEDS ORDERED: ACETAMINOPHEN 500 MG TABLET ONE (21:23)
[2019-09-10] MEDS ORDERED: ACETAMINOPHEN 500 MG TABLET PO ONE (21:30)
== END 2019-09-10 21:55 | disposition home or self-care (01) ==
LOC: ED 21:49
DX: B34.9 Viral infection, unspecified (principal); I25.10 Atherosclerotic heart disease of native coronary artery without angina pectoris; J44.9 Chronic obstructive pulmonary disease, unspecified; F41.1 Generalized anxiety disorder; I25.2 Old myocardial infarction; E11.65 Type 2 diabetes mellitus with hyperglycemia; I10 Essential (primary) hypertension; Z98.61 Coronary angioplasty status; F31.9 Bipolar disorder, unspecified
CPT/HCPCS: 99283

== ENCOUNTER 2019-09-13 06:56 | Emergency (ER) | payer MEDICARE ==
[~2019-09-13] VITALS: Ht 157.5 cm; Wt 68.2 kg
[2019-09-13 07:16] VITALS: BP 184/77
[2019-09-13] MEDS ORDERED: ALBUTEROL/IPRATROPIUM 2.5MG/0.5MG, 3 ML NPPB ONE (07:30)
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
--- NOTE | 2019-09-13 07:36 | NUR ---
PATIENT IS REFUSING EKG AT THIS TIME.
--- NOTE | 2019-09-13 07:39 | NUR ---
PATIENT REFUSING EKG
[2019-09-13 07:58] LABS: BASOPHILS # (AUTO) 0.03 x10^3/uL (0-0.1); BASOPHILS % (AUTO) 0 % (0-1); EOSINOPHILS # (AUTO) 0.08 x10^3/uL (0-0.4); EOSINOPHILS % (AUTO) 1 % (1-7); LYMPHOCYTES # (AUTO) 1.86 x10^3/uL (1-3.4); LYMPHOCYTES % (AUTO) 15 % (22-44); MD NO; MEAN CORPUSCULAR HEMOGLOBIN 30.5 pg (27.0-34.8); MEAN CORPUSCULAR HGB CONC 32.9 g/dL (32.4-35.8); MEAN CORPUSCULAR VOLUME 92.6 fL (80-100); MEAN PLATELET VOLUME 8.5 fL (7.4-10.4); MONOCYTES # (AUTO) 0.81 x10^3/uL (0.2-0.8); MONOCYTES % (AUTO) 7 % (2-9); NEUTROPHILS # (AUTO) 9.31 x10^3/uL (1.8-6.8); NEUTROPHILS % (AUTO) 77 % (42-75); PLATELET COUNT 246 x10^3/uL (130-400); RED BLOOD COUNT 4.38 x10^6/uL (3.82-5.3); RED CELL DISTRIBUTION WIDTH 14.4 % (9.6-15.2)
[2019-09-13] MEDS ORDERED: ALBUTEROL/IPRATROPIUM 2.5MG/0.5MG, 3 ML ONE (07:58)
[2019-09-13 08:05] LABS: ANION GAP 3 mmol/L (5-15); CHLORIDE 108 mmol/L (98-107)
[2019-09-13 08:10] LABS: CREATININE 0.89 mg/dL (0.55-1.02)
--- NOTE | 2019-09-13 08:28 | NUR ---
EKG COMPLETED. PATIENT IS RESTING ON GURNEY WITH CALL LIGHT IN REACH.
--- NOTE | 2019-09-13 10:08 | NUR ---
Patient given discharge instructions and they have confirmed that they understand the instructions. Patient ambulatory with steady gait.
== END 2019-09-13 10:09 | disposition home or self-care (01) ==
LOC: ED 07:27
DX: J44.1 Chronic obstructive pulmonary disease with (acute) exacerbation (principal); E11.65 Type 2 diabetes mellitus with hyperglycemia; I25.10 Atherosclerotic heart disease of native coronary artery without angina pectoris; I10 Essential (primary) hypertension; I25.2 Old myocardial infarction; Z87.891 Personal history of nicotine dependence; Z98.61 Coronary angioplasty status
CPT/HCPCS: 36415; 71046; 80048; 83880; 85025; 93005; 94640; 99284; J7620

== ENCOUNTER 2020-05-03 18:00 | Emergency (ER) | payer MEDICARE ==
[~2020-05-03 18:00] MED LIST changes: +SIMV20TA19 PO; -SIMV20TA3 PO
== END 2020-05-03 18:11 | disposition left against medical advice (07) ==
LOC: ED 18:05
DX: R68.89 Other general symptoms and signs (principal); Z53.21 Procedure and treatment not carried out due to patient leaving prior to being seen by health care provider

== ENCOUNTER 2020-05-09 03:33 | Emergency (ER) | payer MEDICARE, MEDICAID ==
[~2020-05-09] VITALS: Ht 160 cm; Wt 64.6 kg
[2020-05-09 04:23] LABS: BASOPHILS # (AUTO) 0.05 x10^3/uL (0-0.1); BASOPHILS % (AUTO) 1 % (0-1); EOSINOPHILS # (AUTO) 0.21 x10^3/uL (0-0.4); EOSINOPHILS % (AUTO) 3 % (1-7); LYMPHOCYTES # (AUTO) 1.93 x10^3/uL (1-3.4); LYMPHOCYTES % (AUTO) 30 % (22-44); MD NO; MEAN CORPUSCULAR HGB CONC 34.1 g/dL (32.4-35.8); MEAN CORPUSCULAR VOLUME 90.7 fL (80-100); MEAN PLATELET VOLUME 8.8 fL (7.4-10.4); MONOCYTES # (AUTO) 0.64 x10^3/uL (0.2-0.8); MONOCYTES % (AUTO) 10 % (2-9); NEUTROPHILS # (AUTO) 3.59 x10^3/uL (1.8-6.8); NEUTROPHILS % (AUTO) 56 % (42-75); PLATELET COUNT 224 x10^3/uL (130-400); RED CELL DISTRIBUTION WIDTH 13.1 % (9.6-15.2)
[2020-05-09 04:30] LABS: ANION GAP 8 mmol/L (5-15); CALCIUM 9.2 mg/dL (8.5-10.1); CHLORIDE 103 mmol/L (98-107); CREATININE 0.95 mg/dL (0.55-1.02)
[2020-05-09 04:34] LABS: TROPONIN I < 0.015 ng/mL (0.000-0.045)
[2020-05-09 05:04] VITALS: BP 132/76
== END 2020-05-09 05:33 | disposition home or self-care (01) ==
LOC: ED 04:03
DX: R00.2 Palpitations (principal); R07.9 Chest pain, unspecified; G43.909 Migraine, unspecified, not intractable, without status migrainosus; I10 Essential (primary) hypertension; J44.9 Chronic obstructive pulmonary disease, unspecified; I25.2 Old myocardial infarction; Z87.891 Personal history of nicotine dependence
CPT/HCPCS: 36415; 71045; 80048; 82040; 84443; 84484; 85025; 93005; 99285

== ENCOUNTER 2020-05-12 15:10 | Emergency (ER) | payer MEDICARE, MEDICAID ==
[~2020-05-12] VITALS: Ht 160 cm; Wt 64.0 kg
[2020-05-12] MEDS ORDERED: AMLO5TAB4 PO (15:31)
--- NOTE | 2020-05-12 15:34 | NUR ---
THIS IS A 64 YO FEMALE COMING IN FOR "JUST A MILD HEADACHE, I THINK MY BLOOD PRESSURE IS HIGH, AND I DON'T THINK MY MEDICATION IS WORKING". PATIENT WAS HYPERTENSIVE IN TRIAGE, STATES SHE STARTED AMLODIPINE 5MG RECENTLY. A&OX4, ALL OTHER VSS, REFUSING TO BE PLACED ON MONITOR AT THIS TIME, PREFERS TO SIT IN CHAIR IN ROOM. CALL LIGHT IN REACH, DENIES ANY OTHER SYMPTOMS AT THIS TIME.
[2020-05-12 16:14] LABS: BASOPHILS # (AUTO) 0.04 x10^3/uL (0-0.1); BASOPHILS % (AUTO) 1 % (0-1); EOSINOPHILS # (AUTO) 0.11 x10^3/uL (0-0.4); EOSINOPHILS % (AUTO) 2 % (1-7); LYMPHOCYTES # (AUTO) 1.57 x10^3/uL (1-3.4); LYMPHOCYTES % (AUTO) 21 % (22-44); MD NO; MEAN CORPUSCULAR HEMOGLOBIN 30.7 pg (27.0-34.8); MEAN CORPUSCULAR HGB CONC 33.7 g/dL (32.4-35.8); MEAN PLATELET VOLUME 7.9 fL (7.4-10.4); MONOCYTES # (AUTO) 0.53 x10^3/uL (0.2-0.8); MONOCYTES % (AUTO) 7 % (2-9); NEUTROPHILS # (AUTO) 5.17 x10^3/uL (1.8-6.8); NEUTROPHILS % (AUTO) 70 % (42-75); PLATELET COUNT 260 x10^3/uL (130-400); RED BLOOD COUNT 4.77 x10^6/uL (3.82-5.3); RED CELL DISTRIBUTION WIDTH 13.1 % (9.6-15.2)
[2020-05-12 16:22] LABS: ALBUMIN 4.2 g/dL (3.4-5.0); ANION GAP 7 mmol/L (5-15); CALCIUM 9.6 mg/dL (8.5-10.1); CHLORIDE 101 mmol/L (98-107); CREATININE 0.89 mg/dL (0.55-1.02)
[2020-05-12 16:28] VITALS: BP 149/91
--- NOTE | 2020-05-12 16:29 | NUR ---
lab results back, patient up for recheck.
--- NOTE | 2020-05-12 17:44 | NUR ---
Patient/Caregiver given discharge instructions and they have confirmed that they understand the instructions. Patient ambulatory with steady gait.
== END 2020-05-12 17:45 | disposition home or self-care (01) ==
LOC: ED 17:15
DX: I10 Essential (primary) hypertension (principal); R51 Headache; R94.31 Abnormal electrocardiogram [ECG] [EKG]; E11.65 Type 2 diabetes mellitus with hyperglycemia; E87.6 Hypokalemia; J44.9 Chronic obstructive pulmonary disease, unspecified; I25.2 Old myocardial infarction; I25.10 Atherosclerotic heart disease of native coronary artery without angina pectoris; F17.210 Nicotine dependence, cigarettes, uncomplicated
CPT/HCPCS: 36415; 80048; 82040; 85025; 93005; 99284; 99406

== ENCOUNTER 2020-05-24 23:42 | Emergency (ER) | payer MEDICARE, MEDICAID ==
[~2020-05-24] VITALS: Ht 160 cm; Wt 64.5 kg
[~2020-05-24 23:42] MED LIST changes: +AMLO5TAB4 PO
--- NOTE | 2020-05-25 00:12 | NUR ---
assumed care of pt. pt here with mulitple c/o. pt reports that she has pink eye and has gauze and duct tape over her R eye. c/o "leg cramps", ambulatory without difficulty. states that she was seen a couple of days ago at [facility] for same no resp. distress. SHARAD. ambulatory Hannah HANCOCK at bedside for eval
[2020-05-25] MEDS ORDERED: PROPARACAINE OPHTH 0.5%, 15ML ONE ×2 (00:17→00:20)
[2020-05-25] MEDS ORDERED: FLUORESCEIN OPHTHALMIC 1 MG STRIP ONE (00:23)
[2020-05-25] MEDS ORDERED: PROPARACAINE OPHTH 0.5%, 15ML RIGHTEYE ONE (00:30)
[2020-05-25] MEDS ORDERED: FLUORESCEIN OPHTHALMIC 1 MG STRIP RIGHTEYE ONE (00:30)
--- NOTE | 2020-05-25 00:41 | NUR ---
lab has bene to bedside to draw
[2020-05-25 00:46] LABS: BASOPHILS # (AUTO) 0.04 x10^3/uL (0-0.1); BASOPHILS % (AUTO) 1 % (0-1); EOSINOPHILS # (AUTO) 0.22 x10^3/uL (0-0.4); EOSINOPHILS % (AUTO) 3 % (1-7); LYMPHOCYTES # (AUTO) 1.87 x10^3/uL (1-3.4); LYMPHOCYTES % (AUTO) 25 % (22-44); MD NO; MEAN CORPUSCULAR HEMOGLOBIN 30.8 pg (27.0-34.8); MEAN CORPUSCULAR HGB CONC 33.7 g/dL (32.4-35.8); MEAN CORPUSCULAR VOLUME 91.6 fL (80-100); MONOCYTES % (AUTO) 10 % (2-9); NEUTROPHILS % (AUTO) 62 % (42-75); PLATELET COUNT 243 x10^3/uL (130-400); RED CELL DISTRIBUTION WIDTH 13.1 % (9.6-15.2)
--- NOTE | 2020-05-25 00:50 | NUR ---
report to Kalin CRUZ for lunch
[2020-05-25 00:57] LABS: ALBUMIN 3.8 g/dL (3.4-5.0); CALCIUM 8.4 mg/dL (8.5-10.1); CHLORIDE 100 mmol/L (98-107); CREATININE 0.89 mg/dL (0.55-1.02)
[2020-05-25] MEDS ORDERED: POLYTRIM OPHTH 10ML RIGHTEYE ONE (01:00)
--- NOTE | 2020-05-25 01:41 | NUR ---
Hannah HANCOCK at bedside for recheck
[2020-05-25 01:59] VITALS: BP 159/89
[2020-05-25 03:50] LABS: ANION GAP 10 mmol/L (5-15)
== END 2020-05-25 02:05 | disposition home or self-care (01) ==
LOC: ED 23:59
DX: S05.01XA Injury of conjunctiva and corneal abrasion without foreign body, right eye, initial encounter (principal); M62.838 Other muscle spasm; Z87.891 Personal history of nicotine dependence; X58.XXXA Exposure to other specified factors, initial encounter; Y93.89 Activity, other specified; Y92.89 Other specified places as the place of occurrence of the external cause; Y99.8 Other external cause status
CPT/HCPCS: 36415; 80048; 82040; 85025; 99283

== ENCOUNTER 2020-05-25 22:08 | Emergency (ER) | payer MEDICARE, MEDICAID ==
[~2020-05-25] VITALS: Ht 157.5 cm; Wt 70.0 kg
--- NOTE | 2020-05-25 22:22 | NUR ---
PT BIB [facility] FOR GERMAN AND HTN. VSS. 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 pt given water. Pt requesting prednisone for swelling of eye. at bedside
--- NOTE | 2020-05-25 22:57 | NUR ---
PT MEDICATED AND VERBALIZED UNDERSTANDING OF DISCHARGE INSTRUCTIONS. PT AMBULATED OUT OF ER WITH A STEADY GAIT.
[2020-05-25 22:58] VITALS: BP 159/81
== END 2020-05-25 23:05 | disposition home or self-care (01) ==
LOC: ED 23:03
DX: R51 Headache (principal); I10 Essential (primary) hypertension; E11.65 Type 2 diabetes mellitus with hyperglycemia; I25.10 Atherosclerotic heart disease of native coronary artery without angina pectoris; J44.9 Chronic obstructive pulmonary disease, unspecified; G89.29 Other chronic pain; I25.2 Old myocardial infarction; Z98.61 Coronary angioplasty status
CPT/HCPCS: 99283; J7512

== ENCOUNTER 2020-05-28 08:39 | Emergency (ER) | payer MEDICARE, MEDICAID ==
[~2020-05-28] VITALS: Ht 157.5 cm; Wt 64.8 kg
[2020-05-28 08:42] VITALS: BP 123/88
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
== END 2020-05-28 09:13 | disposition left against medical advice (07) ==
LOC: ED 09:00
DX: H57.10 Ocular pain, unspecified eye (principal); Z53.21 Procedure and treatment not carried out due to patient leaving prior to being seen by health care provider

== ENCOUNTER 2020-05-29 03:58 | Emergency (ER) | payer MEDICARE, MEDICAID ==
[~2020-05-29] VITALS: Ht 157.5 cm; Wt 65.3 kg
--- NOTE | 2020-05-29 04:04 | NUR ---
PT NOT IN LOBBY WHEN CALLED FROM TRIAGE.
[2020-05-29 04:09] VITALS: BP 132/87
[2020-05-29] MEDS ORDERED: PROPARACAINE OPHTH 0.5%, 15ML ONE (05:11)
[2020-05-29] MEDS ORDERED: PROPARACAINE OPHTH 0.5%, 15ML EACHEYE STA (05:12)
== END 2020-05-29 05:41 | disposition home or self-care (01) ==
LOC: ED 04:53
DX: S05.01XA Injury of conjunctiva and corneal abrasion without foreign body, right eye, initial encounter (principal); J44.9 Chronic obstructive pulmonary disease, unspecified; I25.2 Old myocardial infarction; I25.10 Atherosclerotic heart disease of native coronary artery without angina pectoris; E11.9 Type 2 diabetes mellitus without complications; G43.909 Migraine, unspecified, not intractable, without status migrainosus; Z87.891 Personal history of nicotine dependence; X58.XXXA Exposure to other specified factors, initial encounter; Y93.89 Activity, other specified; Y92.89 Other specified places as the place of occurrence of the external cause; Y99.8 Other external cause status
CPT/HCPCS: 99283

== ENCOUNTER 2020-06-04 04:35 | Emergency (ER) | payer MEDICARE, MEDICAID ==
[~2020-06-04] VITALS: Ht 157.5 cm; Wt 65.3 kg
--- NOTE | 2020-06-04 04:54 | NUR ---
pt ambulated back to room with a smooth and steady gait. pt c/o severe nausea and back pain x1 day, was seen at [facility] earlier this evening. NAD, VSS. Denies trauma or changes in GI/. WCTM.
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
--- NOTE | 2020-06-04 05:35 | NUR ---
UA sent to lab. pt nad, smooth and steady gait to and from restroom. WCTM.
[2020-06-04 06:07] VITALS: BP 158/92
[2020-06-04 06:22] LABS: MICROSCOPIC INDICATED
--- NOTE | 2020-06-04 06:57 | NUR ---
Patien discharge instructions and they have confirmed that they understand the instructions. Patient ambulatory with steady gait. pt not happy with being DC'd at this time. NAD, P/w/d, provided bus pass
== END 2020-06-04 06:58 | disposition home or self-care (01) ==
LOC: ED 05:38
DX: M54.6 Pain in thoracic spine (principal); M54.5 Low back pain; M54.2 Cervicalgia; R10.9 Unspecified abdominal pain; J44.9 Chronic obstructive pulmonary disease, unspecified; E11.9 Type 2 diabetes mellitus without complications; G43.909 Migraine, unspecified, not intractable, without status migrainosus; I10 Essential (primary) hypertension; I25.2 Old myocardial infarction; E87.6 Hypokalemia; E11.65 Type 2 diabetes mellitus with hyperglycemia; I25.10 Atherosclerotic heart disease of native coronary artery without angina pectoris; Z87.891 Personal history of nicotine dependence
CPT/HCPCS: 81001; 99283

== ENCOUNTER 2020-06-05 23:24 | Emergency (ER) | payer MEDICARE, MEDICAID ==
[~2020-06-05] VITALS: Ht 160 cm; Wt 75.0 kg
[2020-06-05 23:32] VITALS: BP 190/93
--- NOTE | 2020-06-05 23:41 | NUR ---
PT BIB EMS WITH HIGH BLOOD PRESSURE, 190/93 ON ARRIVAL TO ED. PT REPORTS GERMAN, NERVOUSNESS, PALPITATIONS. DENIES ANY OTHER MEDICAL C/O AT THIS TIME. PT STATES " YOU ALL DO IT WRONG WHEN IM HERE" PT INITIALLY REFUSING CARE ON ARRIVAL. EKG DONE. IV PLACED TALENT DEVELOPMENT CONSULTANT. PT PLACED ON ALL MONITORING, CALL LIGHT WITHIN REACH, ALL SAFETY MEASURES IN PLACE.
[2020-06-05] MEDS ORDERED: ACETAMINOPHEN 500 MG TABLET ONE (23:47)
[2020-06-05] MEDS ORDERED: AMLODIPINE 5 MG TABLET ONE (23:47)
[2020-06-05] MEDS ORDERED: IBUPROFEN 200 MG TABLET ONE (23:47)
[2020-06-06] MEDS ORDERED: ACETAMINOPHEN 500 MG TABLET PO ONE
[2020-06-06] MEDS ORDERED: AMLODIPINE 5 MG TABLET PO ONE
[2020-06-06] MEDS ORDERED: IBUPROFEN 200 MG TABLET PO ONE
--- NOTE | 2020-06-06 00:58 | NUR ---
Patient/Caregiver given discharge instructions and they have confirmed that they understand the instructions. Patient ambulatory with steady gait.
== END 2020-06-06 00:59 | disposition home or self-care (01) ==
LOC: ED 23:54
DX: R51 Headache (principal); R00.2 Palpitations; I10 Essential (primary) hypertension; R07.89 Other chest pain; E11.9 Type 2 diabetes mellitus without complications; J44.9 Chronic obstructive pulmonary disease, unspecified; I25.10 Atherosclerotic heart disease of native coronary artery without angina pectoris; I25.2 Old myocardial infarction; Z87.891 Personal history of nicotine dependence; Z98.61 Coronary angioplasty status
CPT/HCPCS: 93005; 99284

== ENCOUNTER 2020-06-26 00:50 | Emergency (ER) | payer MEDICARE, MEDICAID ==
[~2020-06-26] VITALS: Ht 157.5 cm; Wt 62.3 kg
[2020-06-26 00:54] VITALS: BP 181/95
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
--- NOTE | 2020-06-26 01:58 | NUR ---
TASK RN: PT REFUSED MOTRIN, STATES THAT SHE HAD JUST BOUGHT SOME AND HAS IT IN HER BAG. DC EDUCATION PROVIDED, PT DEMONSTRATES UNDERSTANDING. PT AMBULATED STEADILY TO DC WITH RN. PROVIDED TAXI VOUCHER FOR SAFE TRANSPORT HOME.
[2020-06-26] MEDS ORDERED: IBUPROFEN 800 MG TABLET PO ONE (02:00)
== END 2020-06-26 02:00 | disposition home or self-care (01) ==
LOC: ED 01:30
DX: S51.051A Open bite, right elbow, initial encounter (principal); S50.01XA Contusion of right elbow, initial encounter; I10 Essential (primary) hypertension; J44.9 Chronic obstructive pulmonary disease, unspecified; I25.10 Atherosclerotic heart disease of native coronary artery without angina pectoris; E11.9 Type 2 diabetes mellitus without complications; I25.2 Old myocardial infarction; Z98.61 Coronary angioplasty status; Z87.891 Personal history of nicotine dependence; Y04.8XXA Assault by other bodily force, initial encounter; Y93.89 Activity, other specified; Y92.009 Unspecified place in unspecified non-institutional (private) residence as the place of occurrence of the external cause; Y99.8 Other external cause status
CPT/HCPCS: 99283

== ENCOUNTER 2020-06-29 00:54 | Emergency (ER) | payer MEDICARE, MEDICAID ==
[~2020-06-29] VITALS: Ht 157.5 cm; Wt 61.0 kg
[2020-06-29 00:57] VITALS: BP 169/90
--- NOTE | 2020-06-29 01:06 | NUR ---
ERP TO BEDSIDE.
[2020-06-29] MEDS ORDERED: AMOXICILLIN/CLAV 875-125MG TABLET ONE (01:19)
[2020-06-29] MEDS ORDERED: DIPH,PERTUSS(ACELL),TET VAC/PF 0.5 ML IM-VACC ONE ×2 (01:20→01:30)
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
[2020-06-29] MEDS ORDERED: AMOXICILLIN/CLAV 875-125MG TABLET PO ONE (01:30)
== END 2020-06-29 01:58 | disposition home or self-care (01) ==
LOC: ED 01:07
DX: G89.11 Acute pain due to trauma (principal); M79.621 Pain in right upper arm; I10 Essential (primary) hypertension; E11.9 Type 2 diabetes mellitus without complications; I25.2 Old myocardial infarction; J44.9 Chronic obstructive pulmonary disease, unspecified; I25.10 Atherosclerotic heart disease of native coronary artery without angina pectoris; Z87.891 Personal history of nicotine dependence; Z48.00 Encounter for change or removal of nonsurgical wound dressing
CPT/HCPCS: 90471; 90715; 99283

== ENCOUNTER 2020-07-09 21:48 | Emergency (ER) | payer MEDICARE, MEDICAID ==
[~2020-07-09] VITALS: Ht 157.5 cm; Wt 65.2 kg
[2020-07-09] MEDS ORDERED: LORazepam 1MG TABLET ONE (22:54)
[2020-07-09] MEDS ORDERED: LORazepam 1MG TABLET PO ONE (23:00)
[2020-07-09 23:32] LABS: BASOPHILS # (AUTO) 0.04 x10^3/uL (0-0.1); BASOPHILS % (AUTO) 0 % (0-1); EOSINOPHILS # (AUTO) 0.21 x10^3/uL (0-0.4); EOSINOPHILS % (AUTO) 2 % (1-7); LYMPHOCYTES # (AUTO) 2.09 x10^3/uL (1-3.4); LYMPHOCYTES % (AUTO) 20 % (22-44); MD NO; MEAN CORPUSCULAR HEMOGLOBIN 30.6 pg (27.0-34.8); MEAN CORPUSCULAR VOLUME 92.7 fL (80-100); MEAN PLATELET VOLUME 9.1 fL (7.4-10.4); MONOCYTES # (AUTO) 0.68 x10^3/uL (0.2-0.8); MONOCYTES % (AUTO) 6 % (2-9); NEUTROPHILS # (AUTO) 7.64 x10^3/uL (1.8-6.8); NEUTROPHILS % (AUTO) 72 % (42-75); PLATELET COUNT 229 x10^3/uL (130-400); RED BLOOD COUNT 4.46 x10^6/uL (3.82-5.3); RED CELL DISTRIBUTION WIDTH 14.1 % (9.6-15.2)
[2020-07-09 23:45] LABS: ALBUMIN 3.5 g/dL (3.4-5.0); ANION GAP 5 mmol/L (5-15); CALCIUM 8.7 mg/dL (8.5-10.1); CHLORIDE 113 mmol/L (98-107); CREATININE 0.72 mg/dL (0.55-1.02)
[2020-07-09 23:57] LABS: TROPONIN I < 0.015 ng/mL (0.000-0.045)
[2020-07-10 00:58] VITALS: BP 173/84
== END 2020-07-10 02:08 | disposition home or self-care (01) ==
LOC: ED 07-10 00:03
DX: J43.9 Emphysema, unspecified (principal); R00.2 Palpitations; R07.89 Other chest pain; I10 Essential (primary) hypertension; E11.9 Type 2 diabetes mellitus without complications; I25.2 Old myocardial infarction; I25.10 Atherosclerotic heart disease of native coronary artery without angina pectoris; Z87.891 Personal history of nicotine dependence; Z98.61 Coronary angioplasty status
CPT/HCPCS: 36415; 71045; 80048; 82040; 83880; 84484; 85025; 93005; 99285

== ENCOUNTER 2020-07-14 22:18 | Emergency (ER) | payer MEDICARE, MEDICAID ==
[~2020-07-14] VITALS: Ht 157.5 cm; Wt 67.0 kg
[2020-07-14 22:21] VITALS: BP 137/77
[2020-07-14] MEDS ORDERED: IBUPROFEN 200 MG TABLET PO ONE (23:00)
[2020-07-14] MEDS ORDERED: IBUPROFEN 200 MG TABLET ONE (23:09)
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
== END 2020-07-14 23:39 | disposition home or self-care (01) ==
LOC: ED 22:53
DX: M25.521 Pain in right elbow (principal); I10 Essential (primary) hypertension; E11.9 Type 2 diabetes mellitus without complications; I25.2 Old myocardial infarction; I25.10 Atherosclerotic heart disease of native coronary artery without angina pectoris; J44.9 Chronic obstructive pulmonary disease, unspecified; Z98.61 Coronary angioplasty status; F17.210 Nicotine dependence, cigarettes, uncomplicated
CPT/HCPCS: 99281; 99282; 99406

== ENCOUNTER 2020-07-23 07:00 | Emergency (ER) | payer MEDICARE, MEDICAID ==
[~2020-07-23] VITALS: Ht 160 cm; Wt 65.4 kg
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
[2020-07-23] MEDS ORDERED: KETOROLAC 30 MG/1 ML IM ONE (07:30)
[2020-07-23] MEDS ORDERED: AMLODIPINE 5 MG TABLET PO ONE (07:30)
[2020-07-23] MEDS ORDERED: AMLODIPINE 5 MG TABLET ONE (07:31)
[2020-07-23] MEDS ORDERED: KETOROLAC 30 MG/1 ML ONE (07:31)
--- NOTE | 2020-07-23 07:40 | NUR ---
US IN ROOM.
--- NOTE | 2020-07-23 07:57 | NUR ---
PT NOT IN ROOM AT THIS TIME, PRESUMABLY IN BR.
[2020-07-23 08:07] VITALS: BP 171/81
--- NOTE | 2020-07-23 08:08 | NUR ---
PT RETURNED TO ROOM, FULL CLOTHED. PT ASSISTED BACK INTO GOWN AND EXPLAINED RATIONALE. PT RESTING ON GURNEY W/ CALL LIGHT IN REACH AND SIDE RAILS UPX2. RESP EVEN AND UNLABORED, LEAH. AWAITING US RESULTS.
--- NOTE | 2020-07-23 08:24 | NUR ---
PT STILL HYPERTENSIVE, ADVISED TO WAIT IN ED FOR MONITORING BUT PT REFUSING AND STATES "NO I JUST WANT TO GO HOME, THIS IS CHRONIC AND IT DOESNT MATTER". RISKS EXPLAINED TO PT.
== END 2020-07-23 08:49 | disposition home or self-care (01) ==
LOC: ED 07:50
DX: S56.211A Strain of other flexor muscle, fascia and tendon at forearm level, right arm, initial encounter (principal); M79.89 Other specified soft tissue disorders; E11.9 Type 2 diabetes mellitus without complications; I25.2 Old myocardial infarction; I10 Essential (primary) hypertension; J44.9 Chronic obstructive pulmonary disease, unspecified; F17.210 Nicotine dependence, cigarettes, uncomplicated; Z76.0 Encounter for issue of repeat prescription; X58.XXXA Exposure to other specified factors, initial encounter; Y93.89 Activity, other specified; Y92.89 Other specified places as the place of occurrence of the external cause; Y99.8 Other external cause status
CPT/HCPCS: 93971; 96372; 99284; J1885

== ENCOUNTER 2020-07-28 05:57 | Emergency (ER) | payer MEDICARE, MEDICAID ==
[~2020-07-28] VITALS: Ht 157.5 cm; Wt 65.0 kg
[2020-07-28 05:59] VITALS: BP 176/89
== END 2020-07-28 06:44 | disposition home or self-care (01) ==
LOC: ED 06:12
DX: M79.631 Pain in right forearm (principal); S51.851D Open bite of right forearm, subsequent encounter; J44.9 Chronic obstructive pulmonary disease, unspecified; E11.9 Type 2 diabetes mellitus without complications; I10 Essential (primary) hypertension; I25.2 Old myocardial infarction; W50.3XXD Accidental bite by another person, subsequent encounter
CPT/HCPCS: 99282

== ENCOUNTER 2020-07-31 15:09 | Emergency (ER) | payer MEDICARE, MEDICAID ==
[~2020-07-31] VITALS: Ht 160 cm; Wt 66.0 kg
[2020-07-31 15:16] VITALS: BP 149/82
== END 2020-07-31 16:25 | disposition home or self-care (01) ==
LOC: ED 16:18
DX: R07.89 Other chest pain (principal); I10 Essential (primary) hypertension; R94.31 Abnormal electrocardiogram [ECG] [EKG]
CPT/HCPCS: 93005; 99283

== ENCOUNTER 2020-08-05 22:36 | Emergency (ER) | payer MEDICARE, MEDICAID ==
[~2020-08-05] VITALS: Ht 160 cm; Wt 65.1 kg
--- NOTE | 2020-08-05 22:54 | NUR ---
PT REPORTS COMING IN FOR "FLU LIKE SYMPTOMS" THAT HAVE BEEN ONGOING, PT STATES HER RIGHT "ELBOW ALSO HAS AN INFECTION". CMS INTACT, NO ABNORMALITIES NOTED TO R ELBOW ASIDE FROM MINOR SCAR TISSUE. PT RESTING ON GURNEY, NAD, EVEN AND UNLABORED RESPIRATIONS. PLACED ON SPO2/BP MONITORING. WCTM. WAITING ON CHEST RAD DUONG TATE AT BS FOR EVAL AND POC
[2020-08-05 23:20] VITALS: BP 120/98
--- NOTE | 2020-08-05 23:39 | NUR ---
Patient given discharge instructions and they have confirmed that they understand the instructions. Patient ambulatory with steady gait. PROVIDED BUS PASS TO GO HOME PER REQUEST, OFFERED TAXI VOUCHER INSTEAD. NAD, DENIES ADDITIONAL QUESTIONS OR NEEDS, NO BELONGINGS FOUND AFTER PT DC.
== END 2020-08-05 23:44 | disposition home or self-care (01) ==
LOC: ED 22:56
DX: H92.03 Otalgia, bilateral (principal); R19.7 Diarrhea, unspecified; R11.0 Nausea; R50.9 Fever, unspecified; R05 Cough; M79.10 Myalgia, unspecified site; I10 Essential (primary) hypertension; E11.9 Type 2 diabetes mellitus without complications; J44.9 Chronic obstructive pulmonary disease, unspecified; F17.200 Nicotine dependence, unspecified, uncomplicated; I25.10 Atherosclerotic heart disease of native coronary artery without angina pectoris
CPT/HCPCS: 71045; 99283